=== PATIENT | female | born 1990 | race African-American/Black ===

== ENCOUNTER 2024-07-24 07:56 | Inpatient (IN) | payer OTHER ==
[~2024-07-24] VITALS: Ht 162.6 cm; Wt 71.7 kg
[2024-07-24 08:50] LABS: BASOPHILS % 0.7 % (0.0-2.0); EOSINOPHILS % 1.2 % (0.0-5.0); HEMATOCRIT. 43.9 % (36.0-48.0); HEMOGLOBIN. 14.3 g/dL (12.0-16.0); MEAN CORPUSCULAR HEMOGLOBIN 29.4 pg (28.0-32.0); MEAN CORPUSCULAR HGB CONC 32.4 g/dL (31.0-37.0); MEAN CORPUSCULAR VOLUME 90.5 fL (81.0-99.0); MEAN PLATELET VOLUME 10.5 fl (7.4-10.4); MONOCYTES % 8.7 % (2.0-8.0); NEUTROPHILS % 60.4 % (40.0-76.0); PLATELET 255 x1000/uL (130-400); RED BLOOD CELL COUNT 4.85 mill/uL (4.2-5.4); RED CELL DISTRIBUTION WIDTH 13.4 % (11.6-14.6); WHITE BLOOD COUNT 9.3 x1000/uL (4.5-11.0)
[2024-07-24 08:54] LABS: HCG SCREEN NEGATIVE
[2024-07-24 08:56] LABS: CHLORIDE 103 mEq/L (98-107); POTASSIUM 3.9 mEq/L (3.5-5.1); SODIUM 142 mEq/L (136-145)
[2024-07-24 08:57] LABS: CALCIUM 9.4 mg/dL (8.7-10.4); CARBON DIOXIDE 31 mEq/L (21-32)
[2024-07-24 09:02] LABS: CREATININE 0.8 mg/dL (0.6-1.0); GLUCOSE 101 mg/dL (70-105); UREA NITROGEN BLOOD 9 mg/dL (9-23)
[2024-07-24 09:11] LABS: TROPONIN I HIGH SENSITIVITY < 4 ng/L (3.0-34)
[2024-07-24] MEDS: ASPIRIN 81MG TABLET PO ONE (10:49)
[2024-07-24] MEDS ORDERED: IOHEXOL-350 100 ML BOTTLE ONE (10:50)
[2024-07-24 10:54] LABS: TROPONIN I HIGH SENSITIVITY < 4 ng/L (3.0-34)
[2024-07-24] MEDS: METOPROLOL TARTRATE 25MG TABLET PO SCH (11:15)
[2024-07-24] MEDS ORDERED: ONDANSETRON HCL 4MG/2ML INJ IV PRN (11:30)
[2024-07-24] MEDS ORDERED: DEXTROSE 50% WATER 50ML SYRINGE IV PRN (11:30)
[2024-07-24] MEDS ORDERED: ACETAMINOPHEN 325MG TABLET PO PRN (11:30)
[2024-07-24] MEDS ORDERED: IPRATROPIUM/ALBUTEROL 0.5-3(2.5)MG/3ML NEB HHN PRN (11:30)
[2024-07-24] MEDS ORDERED: CLONIDINE 0.1MG TABLET PO PRN (11:30)
[2024-07-24 12:55] LABS: TROPONIN I HIGH SENSITIVITY < 4 ng/L (3.0-34)
[2024-07-24] MEDS: BLOOD SUGAR DIAGNOSTIC STRIP TEST SCH (13:00)
[2024-07-24 13:59] VITALS: BP 117/73; PULSE 72; RESP 20; TEMP 36.5
[2024-07-24 16:00] VITALS: BP 129/71; PULSE 79; RESP 18; TEMP 36.7
[2024-07-24 19:13] LABS: *AMPHETAMINES SCREEN URINE NEGATIVE (NEGATIVE); *BENZODIAZEPINES SCREEN URINE NEGATIVE (NEGATIVE)
[2024-07-24 19:14] LABS: *BARBITURATES SCREEN URINE NEGATIVE (NEGATIVE); *COCAINE SCREEN URINE NEGATIVE (NEGATIVE); CANNABINOID URINE SCREEN NEGATIVE (NEGATIVE); ECSTASY MDMA SCREEN URINE NEGATIVE (NEGATIVE); METHADONE URINE SCREEN NEGATIVE (NEGATIVE); OPIATES URINE SCREEN NEGATIVE (NEGATIVE); PHENCYCLIDINE URINE SCREEN NEGATIVE (NEGATIVE)
[2024-07-24 20:00] VITALS: BP 101/65; PULSE 88; RESP 20; TEMP 37; O2SAT 98
[2024-07-25] VITALS: BP 103/56; PULSE 97; RESP 18; TEMP 36.9; O2SAT 97
[2024-07-25 06:00] VITALS: BP 107/80; PULSE 64; RESP 18; TEMP 36.7; O2SAT 98
[2024-07-25 08:00] VITALS: BP 112/64; PULSE 84; RESP 18; TEMP 37.3; O2SAT 97
[2024-07-25 08:02] LABS: BASOPHILS % 0.7 % (0.0-2.0); EOSINOPHILS % 2.3 % (0.0-5.0); HEMATOCRIT. 43.4 % (36.0-48.0); LYMPHOCYTES % 33.9 % (20.0-50.0); MEAN CORPUSCULAR HEMOGLOBIN 29.4 pg (28.0-32.0); MEAN CORPUSCULAR HGB CONC 32.3 g/dL (31.0-37.0); MEAN PLATELET VOLUME 10.7 fl (7.4-10.4); MONOCYTES % 8.5 % (2.0-8.0); NEUTROPHILS % 54.6 % (40.0-76.0); PLATELET 223 x1000/uL (130-400); RED BLOOD CELL COUNT 4.77 mill/uL (4.2-5.4); RED CELL DISTRIBUTION WIDTH 13.7 % (11.6-14.6); WHITE BLOOD COUNT 8.2 x1000/uL (4.5-11.0)
[2024-07-25 08:05] LABS: CHLORIDE 106 mEq/L (98-107); POTASSIUM 3.9 mEq/L (3.5-5.1); SODIUM 141 mEq/L (136-145)
[2024-07-25 08:06] LABS: CALCIUM 9.2 mg/dL (8.7-10.4); CARBON DIOXIDE 26 mEq/L (21-32)
[2024-07-25 08:11] LABS: CREATININE 0.8 mg/dL (0.6-1.0); GLUCOSE 95 mg/dL (70-105); TRIGLYCERIDE 59 mg/dL (0-150); UREA NITROGEN BLOOD 12 mg/dL (9-23)
[2024-07-25 08:12] LABS: LDL CHOLESTEROL 78 mg/dL (5-100)
[2024-07-25 08:13] LABS: CHOLESTEROL 157 mg/dL (<200); HDL CHOLESTEROL 65 mg/dL (>65)
[2024-07-25 08:16] LABS: ALANINE AMINOTRANSFERASE < 7 IU/L (10-49); ALBUMIN 3.7 g/dL (3.2-4.8); ASPARTATE AMINOTRANSFERASE 13 IU/L (<34); BILIRUBIN DIRECT 0.3 mg/dL (<=3.0)
[2024-07-25 08:17] LABS: BILIRUBIN TOTAL 1.3 mg/dL (0.1-1.0); PROTEIN TOTAL 6.3 g/dL (6.0-8.3); THYROID STIMULATING HORMONE 1.45 uIU/mL (0.55-4.78)
[2024-07-25 08:18] LABS: T4 FREE 1.08 ng/dL (0.89-1.76)
[2024-07-25] MEDS: ASPIRIN 81MG TABLET PO SCH (08:34)
[2024-07-25 12:00] VITALS: BP 112/76; PULSE 74; RESP 18; TEMP 36.7; O2SAT 99
[2024-07-25] MEDS ORDERED: METOPROLOL TARTRATE 5MG/5ML VIAL IV PRN (13:30)
[2024-07-25 16:00] VITALS: BP 106/69; PULSE 78; RESP 18; TEMP 36.4; O2SAT 99
[2024-07-25 20:00] VITALS: BP 112/66; PULSE 88; RESP 18; TEMP 36.7; O2SAT 97
[2024-07-26] VITALS: BP 100/70; PULSE 98; RESP 20; TEMP 37; O2SAT 97
[2024-07-26 04:00] VITALS: BP 108/68; PULSE 64; RESP 20; TEMP 36.7; O2SAT 99
[2024-07-26 07:37] VITALS: BP 110/72; PULSE 70; RESP 18; TEMP 36.8; O2SAT 100
[2024-07-26] MEDS: NITROGLYCERIN SPRAY/4.9GM CAN TL NR (11:25)
[2024-07-26 12:00] VITALS: BP 105/66; PULSE 65; RESP 18; TEMP 36.3; O2SAT 99
[2024-07-26] MEDS ORDERED: IOHEXOL-350 100 ML BOTTLE ONE (12:40)
[2024-07-26] MEDS ORDERED: METO25TA6 PO (15:46)
[2024-07-26] MEDS ORDERED: ASPI-1160 PO (15:46)
[2024-07-26] MEDS ORDERED: ATOR10TA69 MT (15:46)
[2024-07-26 16:00] VITALS: BP 107/68; PULSE 67; RESP 18; TEMP 36.2; O2SAT 100
[2024-07-26 16:32] VITALS: BP 106/69; PULSE 69; TEMP 97.5; O2SAT 99
== END 2024-07-26 18:00 | disposition home or self-care (01) | DRG 311 ==
LOC: ER 07:56 → EDBEDREQ 10:32 → 8WST 13:41
PROVIDERS: ADMIT Internal Medicine; ATTEND Internal Medicine
DX: I20.0 Unstable angina (principal); M94.0 Chondrocostal junction syndrome [Tietze]; I50.9 Heart failure, unspecified; J45.909 Unspecified asthma, uncomplicated; R61 Generalized hyperhidrosis; Z79.899 Other long term (current) drug therapy; Z79.82 Long term (current) use of aspirin; Z82.49 Family history of ischemic heart disease and other diseases of the circulatory system
CPT/HCPCS: 36415; 71045; 71275; 75571; 80048; 80061; 80076; 80305; 82962; 83036; 83880; 84439; 84443; 84484; 84703; 85025; 85379; 93005; 93306; 93970; 99291; Q9967